=== PATIENT | male | born 1980 | race Caucasian/White ===

== ENCOUNTER 2016-07-27 20:21 | Emergency (ER) | payer MEDICAID ==
[2016-07-27] MEDS ORDERED: TMP/SMZ 160MG/800MG TAB PO ONE (21:23)
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
== END 2016-07-27 21:44 | disposition home or self-care (01) ==
LOC: ER 20:21
DX: L03.116 Cellulitis of left lower limb (principal)
CPT/HCPCS: 96372; 99282

== ENCOUNTER 2016-09-06 10:43 | Emergency (ER) | payer MEDICAID ==
--- NOTE | 2016-09-06 10:54 | Emergency Department Record ---
History of Present Illness - General Chief complaint: Allergic Reaction Stated complaint: ALLERGIC REACTION TO ? Time Seen by Provider: 09/06/16 10:53 Source: Patient Mode of Arrival: Ambulatory Limitations: No limitations - History of Present Illness Initial Comments: 35 yo male presents with a rash that started this morning. He has hives that started on the face then spread over his chest, back and arms. No shortness of breath. No throat swelling. No nausea or vomiting. He did not start any new medications. He started a new brand of cigarettes and a new laundry detergent. No history of serious reactions in the past. . MD Complaint: Hives, Other (Rash) Onset/Timin -: Hour(s) Exposure: Unknown Symptoms: Itching, Rash, Other Severity: Moderate Treatment Prior to Arrival: Benadryl Previous Allergy History: None - Related Data Previous Rx's Medication Instructions Recorded Diphenhydramine HCl [Benadryl] 25 mg PO Q6H #20 cap 09/06/16 Prednisone [Prednisone 20Mg] 20 mg PO BID #12 tab 09/06/16 Ranitidine HCl [Zantac] 150 mg PO BID #14 tablet 09/06/16 Allergies Allergy/AdvReac Type Severity Reaction Status Date / Time amoxicillin [From Augmentin] Allergy RASH Verified 07/27/16 20:27 clavulanic acid Allergy RASH Verified 07/27/16 20:27 [From Augmentin] Travel Screening - Travel/Exposure Within Last 30 Days Have you traveled within the last 30 days?: No Review of Systems Constitutional: Denies: Chills, Fever, Malaise, Weakness Eyes: Denies: Eye discharge, Eye pain, Photophobia, Vision change ENT: Denies: Congestion, Throat pain Respiratory: Denies: Cough, Dyspnea, Hemoptysis, Stridor, Wheezes Cardiovascular: Denies: Chest pain, Syncope Endocrine: Denies: Fatigue Gastrointestinal: Denies: Abdominal pain, Diarrhea, Nausea, Vomiting Genitourinary: Denies: Dysuria, Frequency, Hematuria Musculoskeletal: Denies: Arthralgia, Back pain, Joint swelling, Myalgia Skin: Reports: Change in color, Rash Neurological: Denies: Numbness, Weakness Psychiatric: Reports: Anxiety (very anxious with doctors and needles) Hematological/Lymphatic: Denies: Anemia, Easy bleeding, Easy bruising, Swollen glands Past Medical History - SOCIAL HISTORY Smoking Status: Current every day smoker Alcohol Use: Heavy Drug Use Detail:: Marijuana - RESPIRATORY Hx Respiratory Disorders: No - CARDIOVASCULAR Hx Cardio Disorders: No - NEURO Hx Neuro Disorders: No - GI Hx GI Disorders: Yes Comment:: poss abd hernia - Hx Genitourinary Disorders: Yes Hx Kidney Stones: Yes - ENDOCRINE Hx Endocrine Disorders: No - MUSCULOSKELETAL Hx Musculoskeletal Disorders: No - PSYCH Hx Psych Problems: No - HEMATOLOGY/ONCOLOGY Hx Hematology/Oncology Disorders: No Family Medical History Any Significant Family History?: Yes Family Hx Comment (NOT TO BE USED IN PLACE OF ITEMS BELOW): Mom w/diverticulitis Hx Diabetes: Grandparents Hx Resp Disorders: Grandparents Physical Exam - General General Appearance: Alert, Oriented x3, Cooperative, No acute distress Limitations: No limitations - Head Head exam: negative: Normal inspection (facial hives) - Eye Eye exam: Normal appearance, PERRL. negative: Conjunctival injection, Periorbital swelling - ENT ENT exam: Normal exam, Mucous membranes moist, Normal orophraynx Ear exam: Normal external inspection Nasal Exam: Normal inspection Mouth exam: Normal external inspection. negative: Drooling, Muffled voice, Tongue elevation Teeth exam: Normal inspection Throat exam: Normal inspection. negative: Tonsillar erythema, Tonsillomegaly, Tonsillar exudate, R peritonsillar mass, L peritonsillar mass - Neck Neck exam: Normal inspection, Full ROM. negative: Lymphadenopathy, Tenderness - Respiratory Respiratory exam: Normal lung sounds bilaterally. negative: Accessory muscle use, Decreased breath sounds, Prolonged expiratory, Respiratory distress, Rhonchi, Stridor, Wheezes - Cardiovascular Cardiovascular Exam: Tachycardia (HR 106 at time of examination on monitor) Peripheral Pulses: 2+: Radial (R), Radial (L) - GI/Abdominal GI/Abdominal exam: Soft. negative: Tenderness - Rectal Rectal exam: Deferred - exam: Deferred - Extremities Extremities exam: Full ROM, Normal capillary refill. negative: Normal inspection (scattered hives on the face, chest, abdomen and back), Joint swelling, Pedal edema, Tenderness - Back Back exam: Denies: Normal inspection (hives) - Neurological Neurological exam: Alert, Oriented X3 - Psychiatric Psychiatric exam: Normal affect, Normal mood - Skin Skin exam: Urticaria Course Vital Signs 09/06/16 10:45 Temperature 98.8 F Pulse Rate 129 H Respiratory 20 Rate Blood Pressure 159/94 Pulse Ox 100 - Reevaluation(s) Reevaluation #1: The patient had a brief vasovagal spell with IV start and quickly resolved He is resting comfortably 09/06/16 11:30 Reevaluation #2: The patient continues to do very well The hives are nearly completely resolved He is resting comfortably. 09/06/16 11:43 09/06/16 12:11 The patient is very comfortable He is ready for DC We discussed hives, avoiding the new cigarettes and detergent We discussed home care and reasons for return to the ED as well as follow up with PCP Disposition Disposition: Discharge Clinical Impression: Hives Disposition: Home, Self-Care Condition: (1) Good Instructions: Urticaria (ED) Additional Instructions: Return if you have shortness of breath, swelling of the throat, tongue or any new concerns Take Benadryl 25mg every 6 hours Take the Prednisone 20mg twice daily Take Zantac twice daily Call your doctor tomorrow for close follow up to discuss your hives and possible referral for allergy testing Prescriptions: Diphenhydramine HCl [Benadryl] 25 mg PO Q6H #20 cap Prednisone [Prednisone 20Mg] 20 mg PO BID #12 tab Ranitidine HCl [Zantac] 150 mg PO BID #14 tablet Forms: Patient Portal Access Time of Disposition: 12:15 Quality - Quality Measures Quality Measures: N/A - Blood Pressure Screening View Details: Yes Blood Pressure Classification: Hypertensive Reading Systolic Measurement: 159 Diastolic Measurement: 94 Screening for High Blood Pressure: < Pre-Hypertensive BP, F/U Documented > [ [id number]] Pre-Hypertensive Follow-up Interventions: Referral to alternative/primary care provider.
[2016-09-06] MEDS: METHYLPREDNISOLONE PF 125MG/VIAL IVP ONE (11:18)
[2016-09-06] MEDS: DIPHENHYDRAMINE HCL IV 50 MG/ML VIAL IVP ONE (11:18)
[2016-09-06] MEDS: RANITIDINE HCL 50 MG in 0.9 % SODIUM CHLORIDE 100ML 100 ML IVPB ONE (11:18)
== END 2016-09-06 12:36 | disposition home or self-care (01) ==
LOC: ER 10:43
DX: L50.9 Urticaria, unspecified (principal); R55 Syncope and collapse
CPT/HCPCS: 96374; 96375; 99284; J1200; J2780; J2930